=== PATIENT | female | born 1980 | race Hispanic/Latino ===

== ENCOUNTER 2017-07-22 18:59 | Emergency (ER) | payer OTHER ==
[2017-07-22] MEDS ORDERED: IBUPROFEN 600 MG TABLET ONE (19:32)
[2017-07-22] MEDS ORDERED: CYCLOBENZAPRINE HCL 10 MG TABLET ONE (19:33)
[2017-07-22] MEDS ORDERED: ACETAMINOPHEN-CODEINE 300/30MG TAB ONE (19:33)
== END 2017-07-22 19:53 | disposition home or self-care (01) ==
LOC: EDH 18:59
DX: S13.4XXA Sprain of ligaments of cervical spine, initial encounter (principal); M62.830 Muscle spasm of back; M54.5 Low back pain; Z90.710 Acquired absence of both cervix and uterus; V49.49XA Driver injured in collision with other motor vehicles in traffic accident, initial encounter; Y93.89 Activity, other specified; Y92.89 Other specified places as the place of occurrence of the external cause; Y99.8 Other external cause status
CPT/HCPCS: 72040; 72100